=== PATIENT | female | born 1975 | race African-American/Black ===

== ENCOUNTER 2021-02-13 16:01 | Emergency (ER) | payer OTHER ==
[~2021-02-13] VITALS: Ht 162.6 cm; Wt 54.0 kg
[2021-02-13 16:32] VITALS: BP 101/72
--- NOTE | 2021-02-13 17:47 | PHYS DOC ---
Past History Past Medical History: Cancer (metastatic breast cancer) Additional Past Medical Histor: Neurofibromatosis (JASON DAVENPORT) Past Surgical History: Cancer Surgery (JASON DAVENPORT) Alcohol Use: None (JASON DAVENPORT) General Adult EDM: Chief Complaint: FOOT INJURY PAIN HPI: HPI: Patient is a 45 year old female with history of metastatic breast cancer and neurofibromatosis who presents with bilateral foot wounds. Patient states that she has seen her primary care provider as well as her oncologist this week for regular checkups, and has addressed her bilateral foot wounds. She states she is on her third day of Keflex, but the wounds do not seem to be improving. Patient denies fever, chills or increased warmth or drainage from the wounds. (JASON DAVENPORT) Review of Systems: Review of Systems: Constitutional: Denies fever or chills Respiratory: Denies cough or shortness of breath Cardiovascular: Denies chest pain or edema Musculoskeletal: See HPI Integument: See HPI Neurologic: Denies headache, focal weakness or sensory changes (JASON DAVENPORT) Physical Exam: PE: Constitutional: Well developed, well nourished, no acute distress, non-toxic appearance. Cardiovascular:Heart rate regular rhythm, no murmur. Lungs & Thorax: Bilateral breath sounds clear to auscultation. Skin: Small well-healing ulceration between fourth and fifth digits on the right foot. Left foot has a moist appearing skin ulceration extending from the lateral aspect to between digits 2 and 3. No purulent drainage appreciated. Multiple diffuse skin polyps, consistent with patient's reported history of neurofibromatosis. Skin otherwise warm, dry, no erythema, no rash. Extremities: No tenderness, no cyanosis, no clubbing, ROM intact, no edema. Neurologic: Alert and oriented x3, normal motor function, normal sensory function, no focal deficits noted. (JASON DAVENPORT) Current Patient Data: Vital Signs: Vital Signs Date Time Temp Pulse Resp B/P (MAP) Pulse Ox O2 Delivery O2 Flow Rate FiO2 02/13/21 16:32 98.0 98 16 101/72 (82) 98 (JASON DAVENPORT) Heart Score: C/O Chest Pain: No (JASON DAVENPORT) Course & Med Decision Making: Course & Med Decision Making Pertinent Labs and Imaging studies reviewed. (See chart for details) The patient states she has been applying Neosporin 3-4 times a day to her left foot, which would explain the increased moisture to the wound. She was advised to keep the wound dry and clean with gauze. As the patient already has a pr escription for antibiotics, she is instructed to continue taking them. Culture will be obtained to ensure bacteria susceptible. She will follow-up with her primary care provider regarding wound healing. (JASON DAVENPORT) Dragon Disclaimer: Dragon Disclaimer: This electronic medical record was generated, in whole or in part, using a voice recognition dictation system. (JASON DAVENPORT) Attending Co-Sign The patient was seen and interviewed as well as examined at the bedside. The chart was reviewed. The case was discussed. Agree with the plan of care. (PIETER BARLOW DO) Departure Departure: Impression: Primary Impression: Foot ulcer, limited to breakdown of skin Qualified Codes: L97.511 - Non-pressure chronic ulcer of other part of right foot limited to breakdown of skin; L97.521 - Non-pressure chronic ulcer of other part of left foot limited to breakdown of skin Disposition: 01 HOME / SELF CARE / HOMELESS Condition: STABLE Referrals: CHRISTOS GTZ (PCP) Patient Instructions: Skin Infections Additional Instructions: A culture of the discharge from your wound was obtained today. You will be called for a new prescription if the bacterial infection is resistant to your current antibiotic of Keflex. Until then, continue wound care as directed by your primary care provider. You may also call [facility] wound care clinic at [phone] to set up outpatient follow-up for further management. Return to the emergency department if you develop a fever or your wounds get worse. JASON DAVENPORT Feb 13, 2021 17:47 PIETER BARLOW DO Feb 19, 2021 11:06
== END 2021-02-13 18:07 | disposition home or self-care (01) ==
LOC: ER 16:01
DX: L97.511 Non-pressure chronic ulcer of other part of right foot limited to breakdown of skin (principal); L97.521 Non-pressure chronic ulcer of other part of left foot limited to breakdown of skin; Z85.3 Personal history of malignant neoplasm of breast
CPT/HCPCS: 87070; 87077; 87186; 99283; 99282-25

== ENCOUNTER 2021-03-13 15:28 | Emergency (ER) | payer OTHER ==
[~2021-03-13] VITALS: Ht 160 cm; Wt 54.0 kg
--- NOTE | 2021-03-13 15:57 | PHYS DOC ---
Past History Past Medical History: Cancer Additional Past Medical Histor: Neurofibromatosis Past Surgical History: Cancer Surgery Alcohol Use: None Adult General Chief Complaint Chief Complaint: SHORTNESS OF BREATH HPI HPI Patient is a 45-year-old female with a past medical history of neurofibromatosis and breast cancer currently on chemotherapy who presents to the emergency department with a chief complaint of shortness of breath. States that over the last week she has had increased shortness of breath, and a generalized discomfort when breathing. Denies any recent traumas, travels, fevers, chest pain, abdominal pain, nausea, vomiting, dysuria, hematuria, diarrhea or blood in the stool. States she called her primary care physician and was instructed to come to the emergency department. Denies any known ill contacts. Review of Systems Review of Systems Review of systems otherwise unremarkable except noted in HPI Allergies Allergies Allergies Coded Allergies Type Severity Reaction Last Updated Verified No Known Drug Allergies 02/16/21 No Physical Exam Physical Exam Constitutional: Well developed, well nourished, in acute respiratory distress, patient appears that she is not feeling well HENT: Normocephalic, atraumatic, bilateral external ears normal, oropharynx moist, no oral exudates, nose normal. [] Eyes: PERRLA, EOMI, conjunctiva yellow, no discharge. [] Neck: Normal range of motion, no tenderness, supple, no stridor. [] Cardiovascular: Sinus tachycardia Lungs & Thorax: Mild bilateral global rhonchi with shallow breaths, tachypnea Abdomen: soft, no tenderness, no masses, no pulsatile masses. [] Skin: Warm, dry, no erythema, no rash, multiple global skin tags most likely secondary to her neurofibromatosis. [] Back: No tenderness, no CVA tenderness. [] Extremities: No tenderness, no cyanosis, no clubbing, ROM intact, no edema. [] Neurologic: Alert and oriented X 3, normal motor function, normal sensory function, no focal deficits noted. [] Psychologic: Affect normal, judgement normal, mood normal. [] EKG EKG [] Radiology/Procedures Radiology/Procedures Patient with a large right-sided pleural effusion causing respiratory distress. Patient right lateral chest at approximately fourth rib space cleaned with Betadine. Sterile field created with sterile drapes. 5 mils of lidocaine intradermal 4 anesthesia. A Cook 9 Thai chest tube catheter placed after making 1 small incision with a #10 blade. Cook tube placed successfully with immediate drainage of significant serous fluid. Patient tolerated well. Heart Score C/O Chest Pain: No Risk Factors: Risk Factors: DM, Current or recent (<one month) smoker, HTN, HLP, family history of CAD, obesity. Risk Scores: Risk Factors: DM, Current or recent (<one month) smoker, HTN, HLP, family history of CAD, obesity. Course & Med Decision Making Course & Med Decision Making Patient is a 45-year-old female who presents with shortness of breath Vital signs notable for tachycardia and tachypnea. Patient placed on the monitor with IV access established. Started on IV fluid. Cultures obtained. Broad-spectrum antibiotics begun. Laboratory analysis notable for anemia and leukopenia. CT of the chest with complete white out of the right lung with large pleural effusion. Chest tube placed to drain pleural effusion, increase comfort, decrease the work of breathing and decrease pain. Chest tube placed successfully. Discussed all findings with patient and recommended admission for continued evaluation and treatment. Patient grateful, verbalized understanding and agreed with plan of transfer and admission to [facility]. Chantel Disclaimer Dragon Disclaimer This electronic medical record was generated, in whole or in part, using a voice recognition dictation system. Departure Departure: Impression: Primary Impression: Shortness of breath Additional Impressions: Pleural effusion Respiratory distress Disposition: 02 SHORT TERM HOSPITAL Admitting Physician: Adalid Quinn Condition: STABLE Referrals: CHRISTOS GTZ (PCP) Problem Qualifiers LUCI KITCHEN MD Mar 13, 2021 15:56
[2021-03-13] MEDS ORDERED: IOHEXOL 350 MG/ML 100 ML VIAL. IV ONE (16:00)
[2021-03-13] MEDS ORDERED: CONTRAST GIVEN. MC PRN (16:00)
--- NOTE | 2021-03-13 16:49 | RAD ---
Exam: CT of chest, abdomen and pelvis INDICATION: Shortness of breath, cancer TECHNIQUE: Sequential axial images through the chest, abdomen and pelvis obtained following the admin istration of 99 mL of Isovue-370 IV contrast. Sagittal and coronal reformatted images were reconstruc blayne from the axial data and reviewed. 3-D reformatted images were reconstructed from the axial data a nd reviewed. Exposure: One or more of the following in the visualized dose reduction techniques were utilized for this examination: 1. Automated exposure control 2. Adjustment of the MA and/or KV according to patient size 3. Use of iterative of reconstructive technique Comparisons: None FINDINGS: Visualized portions of the thyroid are unremarkable. No enlarged mediastinal lymph nodes are identifi ed. Heart size is normal. No pericardial effusion. Thoracic aorta has normal course and caliber. Pulmonar y artery is not enlarged. No pulmonary embolus identified within the main, lobar or segmental pulmona ry arteries. Airways are patent. There is a large right pleural effusion causing complete atelectasis of the right lung. There is a small to moderate-sized left pleural effusion and atelectasis of the left lower lob e. No suspicious lung nodule identified. There are numerous vague hypoattenuating lesions noted throughout the liver the largest is seen in th e left hepatic lobe which measures approximately 1.7 cm. Spleen, pancreas, gallbladder and adrenals are unremarkable. No perinephric inflammation or hydronephrosis. No renal or ureteral calculi are identified. Bladder is partially distended and not well evaluated. Uterus is absent. No abnormal adnexal mass. Moderate amount of free fluid noted throughout the abdomen. There is a intra-abdominal drain which en ters the abdomen at the right hemiabdomen and terminates at the left upper quadrant. Mild peritoneal enhancement noted particularly in the perihepatic regions. Large and small bowel are unremarkable. Appendix is not identified. No free intra-abdominal air or fl uid. No obstruction. Abdominal aorta has a normal course and caliber. Abdominal vasculature is patent. No enlarged intra-abdominal lymph nodes are identified. There is heterogenous sclerotic appearance diffusely throughout the osseous structures. IMPRESSION: 1. No pulmonary embolus identified within the main, lobar or segmental pulmonary arteries. 2. Large right pleural effusion causing complete atelectasis of the right lung. There is a small to moderate-sized left pleural effusion with adjacent atelectasis. 3. Numerous hypoattenuating lesions throughout the liver favored represent metastatic disease. 4. Moderate amount of intra-abdominal ascites with some mild peritoneal enhancement. Correlate for i nfection. 5. Findings of diffuse osseous metastatic disease. Electronically signed by: Margret Diaz MD (03/13/2021 4:47 PM) [facility]
[2021-03-13 16:50] LABS: BASO % 1 % (0-3); EOS # 0.1 x10^3/uL (0.0-0.7); EOS % 4 % (0-3); HEMATOCRIT 28.5 % (36.0-47.0); HEMOGLOBIN 9.2 g/dL (12.0-15.5); LYMPH # 0.4 x10^3/uL (1.0-4.8); LYMPH % 18 % (24-48); MEAN CORPUSCULAR HEMOGLOBIN 29 pg (25-35); MEAN CORPUSCULAR HGB CONC 32 g/dL (31-37); MEAN CORPUSCULAR VOLUME 90 fL (79-100); MONO # 0.3 x10^3/uL (0.0-1.1); MONO % 15 % (0-9); NEUT # 1.5 x10^3uL (1.8-7.7); NEUT % 63 % (31-73); PLATELET COUNT 229 x10^3/uL (140-400); RED BLOOD COUNT 3.15 x10^6/uL (3.50-5.40); RED CELL DISTRIBUTION WIDTH 20.2 % (11.5-14.5); WHITE BLOOD COUNT 2.4 x10^3/uL (4.0-11.0)
[2021-03-13 16:53] LABS: CALCIUM 8.9 mg/dL (8.5-10.1); CREATININE 1.1 mg/dL (0.6-1.0); POTASSIUM 3.8 mmol/L (3.5-5.1)
[2021-03-13 16:59] LABS: ALBUMIN 2.9 g/dL (3.4-5.0); ALBUMIN/GLOBULIN RATIO 0.9 (1.0-1.7); MAGNESIUM 2.3 mg/dL (1.8-2.4); TOTAL BILIRUBIN 0.3 mg/dL (0.2-1.0); TOTAL PROTEIN 6.2 g/dL (6.4-8.2)
[2021-03-13] MEDS ORDERED: MORPHINE SULFATE 4 MG/ML DISP.SYRIN. ONE (17:29)
[2021-03-13 17:49] LABS: % EOS 3 % (0-5); % LYMPHS 22 % (24-48); % MONOS 11 % (0-10); % SEGS 64 % (35-66)
[2021-03-13 17:50] LABS: ANISOCYTOSIS MOD; PLT ESTIMATE ADEQUATE (ADEQUATE)
--- NOTE | 2021-03-13 17:57 | RAD ---
EXAMINATION: Chest radiograph. VIEWS: Single view COMPARISON: Same day CT chest INDICATION:45 years, Female, chest tube placement. FINDINGS/ IMPRESSION: * Right basilar pleural drain is intervally placed. * Unchanged large right pleural effusion associated with collapsed right lung. * No pneumothorax. * Similar diffuse left pulmonary infiltrates. * No acute osseous process. * Partially visualized peritoneal dialysis catheter with the tip in the left upper abdomen. Electronically signed by: Jessee Lua MD (03/13/2021 5:55 PM) [facility]
--- NOTE | 2021-03-13 19:07 | EKG ---
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
[2021-03-13 21:10] VITALS: BP 117/75
== END 2021-03-13 20:15 | disposition short-term general hospital (02) ==
LOC: ER 15:28
DX: J90 Pleural effusion, not elsewhere classified (principal); R06.03 Acute respiratory distress
CPT/HCPCS: 36415; 71045; 71275; 74177; 80053; 83605; 83735; 84484; 85007; 85025; 87040; 93005; 96365; 96366; 96375; 96376; 99285; J1956; J3010; Q9967